=== PATIENT | female | born 1970 | race Caucasian/White ===

== ENCOUNTER 2017-04-06 06:09 | Day surgery (SDC) | payer OTHER ==
--- NOTE | ~2017-04-06 | EGD ---
EGD REPORT [facility] [address] [address] NAME: CHERY DANGELO : 74 STATUS : [place] [facility] [place] PAT#: [id number] AGE: 46 ADM/REG DATE : 04/06/17 MR#: [id number] REPORT SERV DATE: 04/06/17 DICTATED BY: GALINA ROY DATE: 04/06/17 REPORT STATUS : Draft TRANSCRIBED BY: IATARH [facility] DATE: 04/06/17 Endoscopy Center Patient Name: Chery Dangelo Date of : 1970 Attending MD: GALINA ROY MD Procedure Date No Time: 04/06/2017 Procedure: Upper GI endoscopy Indications: Dysphagia Referring MD: CHIARA HOLT MD Medicines: Monitored Anesthesia Care Complications: No immediate complications. Procedure: Pre-Anesthesia Assessment: - ASA Grade Assessment: III - A patient with severe systemic disease. After obtaining informed consent, the endoscope was passed under direct vision. Throughout the procedure, the patient's blood pressure, pulse, and oxygen saturations were monitored continuously. The GIF [id number] was introduced through the mouth, and advanced to the jejunum. The upper GI endoscopy was accomplished without difficulty. The patient tolerated the procedure well. Findings: A mild Schatzki ring (acquired) was found in the lower third of the esophagus. A TTS dilator was passed through the scope. Dilation with a 15-16.5-18 mm balloon (to a maximum balloon size of 18 mm) dilator was performed. Small mucosal tear in proximal esophagus post procedure not related to the balloon dilation but either scope passage or hiccup during procedure. The examined jejunum was normal. Impression: - Mild Schatzki ring. Dilated. - Normal examined jejunum. Recommendation: - Patient has a contact number available for emergencies. The signs and symptoms of potential delayed complications were discussed with the patient. Return to normal activities tomorrow. Written discharge instructions were provided to the patient. - Regular diet. - Continue present medications. - Return to GI clinic PRN. Procedure Code(s): --- Professional --- EGD REPORT [facility] [address] [place] [place]. [address] NAME: CHERY DANGELO : 74 STATUS : [place] [facility] [place] PAT#: [id number] AGE: 46 ADM/REG DATE : 04/06/17 MR#: [id number] REPORT SERV DATE: 04/06/17 DICTATED BY: GALINA ROY DATE: 04/06/17 REPORT STATUS : Draft TRANSCRIBED BY: [employer] DATE: 04/06/17 [id number], Esophagogastroduodenoscopy, flexible, transoral; with transendoscopic balloon dilation of esophagus (less than 30 mm diameter) Diagnosis Code(s): --- Professional --- K22.2, Esophageal obstruction R13.10, Dysphagia, unspecified CPT copyright 2013 [employer]. All rights reserved. The codes documented in this report are preliminary and upon metal spray operator review may be revised to meet current compliance requirements. GALINA ROY MD 04/06/2017 8:08 AM This report has been signed electronically. Number of Addenda: 0 Note Initiated On: 04/06/2017 7:38 AM Scope Withdrawal Time 0 hours 0 minutes 0 seconds [address] [place] [address]
[~2017-04-06 06:09] MED LIST: ACET500CAP PO; B121000P IM; CYMBALTA60 PO; FEOSOLEL PO; LEXAPRO10 PO; NATALVIT1 TAB PO; NEUR300 PO; PERCOCET1 TA2 PO; PERCOCET1 TA4 PO; VITAMIN B-121000 MC1 SL; X5 PO
[2017-04-16] MEDS ORDERED: PRILOSEC40 MG PO (10:07)
[2017-04-16] MEDS ORDERED: REG5 PO (10:07)
[2017-04-30] MEDS ORDERED: CYMBALTA60 PO (13:14)
[2017-04-30] MEDS ORDERED: X5 PO (13:14)
[2017-04-30] MEDS ORDERED: B121000P IM (13:15)
[2017-04-30] MEDS ORDERED: PRILOSEC40 MG PO (13:15)
[2017-05-05] MEDS ORDERED: REG PO (12:44)
[2017-05-05] MEDS ORDERED: BENTYL20 PO (12:44)
[2017-05-05] MEDS ORDERED: MOVANTIK25 MG PO (12:45)
[2017-05-05] MEDS ORDERED: ZOFRAN ODT4 MG PO (12:45)
[2017-05-05] MEDS ORDERED: T PO (12:53)
[2017-05-05] MEDS ORDERED: MIRALAX POWDER1 PKT PO (12:53)
[2017-05-05] MEDS ORDERED: DSS PO (12:54)
[2017-06-12] MEDS ORDERED: DURA25 TOP (10:41)
[2017-07-20] MEDS ORDERED: REM15SOL PO (13:08)
[2017-07-30] MEDS ORDERED: CHEMOTHERAPY IV (17:02)
[2017-07-30] MEDS ORDERED: TPN INFUSION INF (17:07)
== END 2017-04-06 23:59 | disposition home or self-care (01) ==
LOC: DMU 06:09
PROVIDERS: Internal Medicine Gastroenterology
PROC: 0D738ZZ Dilation of Lower Esophagus, Via Natural or Artificial Opening Endoscopic (ICD-10-PCS; principal; 2017-04-06 07:30)
DX: K22.2 Esophageal obstruction (principal); R13.10 Dysphagia, unspecified; I10 Essential (primary) hypertension; D64.9 Anemia, unspecified; F32.9 Major depressive disorder, single episode, unspecified; Z85.43 Personal history of malignant neoplasm of ovary; Z85.038 Personal history of other malignant neoplasm of large intestine; Z98.890 Other specified postprocedural states; Z98.891 History of uterine scar from previous surgery; Z90.710 Acquired absence of both cervix and uterus; Z87.442 Personal history of urinary calculi; Z90.49 Acquired absence of other specified parts of digestive tract; Z87.891 Personal history of nicotine dependence; Z79.899 Other long term (current) drug therapy
CPT/HCPCS: C1725

== ENCOUNTER 2017-07-05 14:04 | Inpatient (IN) | payer OTHER ==
[~2017-07-05] VITALS: Ht 165.1 cm; Wt 83.5 kg
--- NOTE | ~2017-07-05 | IDS ---
Interim Discharge Summary [facility] [address] [place]. [address] NAME: EDEL DANGELO : 74 STATUS : ADM IN PAT#: [id number] AGE: 46 ADM/REG DATE : 07/05/17 MR#: [id number] REPORT SERV DATE: 07/10/17 DICTATED BY: GALINA BARKER II DATE: 07/09/17 REPORT STATUS : Draft TRANSCRIBED BY: MODL DATE: 07/09/17 ADMISSION DATE: 07/05/2017 DISCHARGE DATE: 07/10/2017 DISCHARGE ORIGINALLY PLANNED: 07/09/2017. Discharge delayed secondary to home health care being unavailable to manage IV antibiotics on day of discharge. Interim summary covers dates of service between 07/05/2017 and 07/09/2017. INTERIM DIAGNOSES: 1. Hyperglycemia, chronic. 2. Mild tachycardia. 3. Dysphagia/moderate malnutrition. 4. Jejunal stenosis. 5. Insomnia. 6. Bacteremia. 7. Metastatic colon cancer. CONSULTATIONS: 1. Dr. Doug Zaragoza, [facility]. 2. Dr. Juan Trujillo, Infectious Disease. HOSPITAL COURSE: Please refer to history and physical dated 07/05/[address] Galina Barker for complete details pertaining to patient's initial presentation upon admission and health history. Also refer to consultation dated 07/07/[address] Juan Trujillo, Infectious Disease. Briefly, the patient is a 46-year-old female with a past medical history significant for metastatic colorectal cancer with peritoneal implants, moderate malnutrition with TPN dependency, B12 deficiency, obesity, status post gastric bypass, chronic anemia, and polyneuropathy, who presented to [facility] for direct admission referred by Dr. Doug Zaragoza, [facility], for evaluation and treatment of fever in the setting of positive 2 blood cultures collected with gross growth of Staph epi. The patient was admitted to the hospitalist service, and Infectious Disease was consulted for staph epidermidis sepsis secondary to presumed port infection. Infectious Disease discussed options with the patient which included recommended removal of port given likelihood of relapse in the setting of ongoing chemotherapy and TPN needs. The patient declined to have port removed stating preference to keep port at this time. ID agreed choice was not unreasonable since this is not Staph aureus, and the patient is clinically stable. Repeat blood cultures were obtained during this admission which returned negative. The patient will be discharged home with home health care for management of IV vancomycin through 07/21/2017. Interim Discharge Summary [facility] [address] [place]. [address] NAME: EDEL DANGELO : 74 STATUS : ADM IN PAT#: [id number] AGE: 46 ADM/REG DATE : 07/05/17 MR#: [id number] REPORT SERV DATE: 07/10/17 DICTATED BY: GALINA BARKER II DATE: 07/09/17 REPORT STATUS : Draft TRANSCRIBED BY: NILDA DATE: 07/09/17 1. Chronic hyperglycemia, this is secondary to TPN dependency. The patient reports she does not check her blood glucose at home or use sliding scale insulin as recommended. During this admission, blood glucose has been elevated and has ranged between 140s and 200s. The patient is receiving sliding scale insulin level 3 at 0800 and 2200. Encouraged the patient to resume home blood glucose checks and sliding scale insulin upon discharge. 2. Mild tachycardia. The patient denies chest pain or shortness of breath. Heart rate is controlled today, and not above high 90s. No additional indication for cardiac workup. 3. Dysphagia/moderate malnutrition. Dysphagia in the setting of stenotic efferent limb of bypass. Dr. Rock was notified during this admission and the patient underwent stenting procedure on 07/06/2017. The patient tolerated the procedure well. She is on current trial of clear liquids per GI. The patient is to follow up with GI, Dr. Rock, in one to two weeks. This patient has been TPN dependent since 05/01/2017. Resume home health care for TPN management upon discharge. Diet advancement trial to be managed outpatient per GI. 4. Jejunal stenosis. The patient has history of gastric bypass, status post stenting on 07/06/2017. Follow up with Dr. Rock. The patient is tolerating very small sips of clear liquids. Mild nausea persist. No vomiting. 5. Insomnia. The patient requested med to help sleep. The patient is very hesitant to take any medications. Suggested Vistaril 25 mg tablet p.o. x1 dose tonight with 1 additional 25 mg dose given one hour later to equal 50 mg if needed. The patient agreed to this plan of care. 6. Bacteremia, port likely source. ID has been following throughout this admission. Disposition to home with home health care for IV vancomycin through July 21. 7. Metastatic colon cancer with peritoneal implants. Restart Vectibix per Oncology, currently on hold secondary to bacteremia. Follow up outpatient with Dr. Zaragoza. DISPOSITION INSTRUCTIONS: Discharge home tomorrow with Home Health Care for management of IV antibiotics and TPN. DICTATED BY: REY Lazaro/NILDA Galina Barker II, MD / [id number] CC: MD Brianna Palumbo II, M.D.
--- NOTE | ~2017-07-05 | CN ---
Consultation Report [facility] [address] [place]. [address] NAME: EDEL DANGELO : 74 STATUS : ADM IN [facility]#: [id number] AGE: 46 ADM/REG DATE : 07/05/17 MR#: [id number] REPORT SERV DATE: 07/07/17 DICTATED BY: KATIE TRUJILLO DATE: 07/07/17 REPORT STATUS : Draft TRANSCRIBED BY: MODL DATE: 07/07/17 INFECTIOUS DISEASE CONSULTATION DATE OF CONSULTATION: 07/07/2017 REASON FOR CONSULTATION: Staph epidermidis sepsis secondary to port infection. HISTORY OF PRESENT ILLNESS: This is a 46-year-old female with recurrent metastatic colon cancer, who has a right Port-A-Cath placed back in 2014. Since April, she has been receiving TPN through it because of extrinsic compression at the level of her duodenum from metastatic disease, not allowing her to eat. She presented to the Oncology office on 07/05 with about a week of episodic fevers as high as 103. Blood cultures have been obtained on 07/03 and have returned positive for coagulase-negative staph. The patient was admitted to the hospital. The blood cultures have been identified as oxacillin-resistant Staph epidermidis. The patient initially was given Ancef and that was changed to vancomycin yesterday. She underwent upper endoscopy yesterday with findings again of the jejunal stenosis, and a stent was placed. She has had no fever here in the hospital. She does feel better than on admission. She denies any problems with the function of her port and denies any pain in the area around the port. PAST MEDICAL HISTORY: Metastatic colon cancer, this was initially diagnosed in late 09/2014, and she underwent combination sigmoid colectomy, low anterior resection, and RAMU/BSO at that time, followed by chemotherapy with recurrent disease within her peritoneum and also a liver nodule. She underwent further extensive surgical therapy at [facility] in 07/2016 with resection of a liver metastasis and complete peritonectomy, except for her left upper quadrant, and excision of multiple metastatic tumors, but again showed recurrence in March of this year documented by biopsy then and again in May. Past medical history is otherwise notable for history of obesity with previous gastric bypass surgery, chronic anemia, and polyneuropathy. ALLERGIES: NO KNOWN DRUG ALLERGIES. PRESENT MEDICATIONS: In addition to vancomycin and TPN include Lovenox and insulin sliding scale. SOCIAL HISTORY: Lives with her . Previously taught in middle School. Nondrinker. Past smoking history. FAMILY HISTORY: Unremarkable. REVIEW OF SYSTEMS: Otherwise negative. She is really not able to eat anything by mouth for the past couple of months. Consultation Report [facility] [id number] [place]. [address] NAME: EDEL DANGELO : 74 STATUS : ADM IN [facility]#: [id number] AGE: 46 ADM/REG DATE : 07/05/17 MR#: [id number] REPORT SERV DATE: 07/07/17 DICTATED BY: KATIE TRUJILLO DATE: 07/07/17 REPORT STATUS : Draft TRANSCRIBED BY: NILDA DATE: 07/07/17 PHYSICAL EXAMINATION: VITAL SIGNS: Weight 78 kg. She is afebrile. Blood pressure 127/79, pulse 112, respiratory rate 14. GENERAL: She is alert, in no acute distress. HEAD AND NECK: Show an oral cavity without thrush. Supple neck. LUNGS: Clear to auscultation anteriorly. CARDIAC: Regular rhythm. Normal S1 and S2 without murmur, gallop, or rub. Port in the right upper chest has no surrounding erythema, edema, or tenderness to palpation. ABDOMEN: Soft and nontender. Bowel sounds are reduced. EXTREMITIES: Without rash. Trace edema in lower legs. LABORATORY STUDIES: White blood cell count 6.5, hemoglobin 12.2, platelets 218, 51% neutrophils, 5% bands. Albumin 2.8, prealbumin 7.8, alkaline phosphatase 124, other liver function tests normal. Repeat blood cultures on admission here on 07/05 are positive, both sets for gram-positive cocci in clusters. The blood cultures from 07/03 were drawn one set peripheral, one set from the port and were both positive. IMPRESSION: Methicillin-resistant Staphylococcus epidermidis sepsis secondary to port infection. PLAN: 1. I discussed options with the patient. I would recommend removal of the port given the likelihood of relapse and given her ongoing chemotherapy and TPN needs. However, she would prefer to keep the port for now. This is not unreasonable since this is not Staph aureus and she is clinically stable. 2. Repeat blood cultures in the morning. If these return positive, I would more strongly recommend removal of the port. 3. I will plan two weeks of vancomycin through 07/20. BRITTANY/MODL Katie Trujillo M.D. / [id number] CC: MD Brianna Palumbo II, M.D. Derek W Holland, M.D.
--- NOTE | ~2017-07-05 | HP ---
History And Physical [address] [address] NAME: EDEL DANGELO : 74 STATUS : ADM IN LOCATED WITHIN [facility]#: [id number] AGE: 46 ADM/REG DATE : 07/05/17 MR#: [id number] REPORT SERV DATE: 07/05/17 DICTATED BY: GALINA BARKER II VITALIYSUNDEEP DATE: 07/05/17 REPORT STATUS : Draft TRANSCRIBED BY: MODL DATE: 07/05/17 DATE OF ADMISSION: 07/05/2017 PRIMARY ONCOLOGIST: Doug Zaragoza M.D. SURGEON: Dr. Ramos. CHIEF COMPLAINT: Fevers. HISTORY OF PRESENT ILLNESS: The patient is a 46-year-old female with an unfortunate history of metastatic colorectal carcinoma with numerous peritoneal implants who presented to Dr. Zaragoza's office after noting intermittent fevers up to 103 over the last week to week and a half. Blood cultures were drawn in Dr. Zaragoza's office yesterday and are growing Staph epi in 2/2 bottles, one being drawn from the port. Dr. Zaragoza requested the patient be admitted for IV antibiotics and further evaluation. The patient states she is still having fevers, but denies any cough, chest pain, shortness of breath, nausea, vomiting, diarrhea, abdominal pain, or dysuria. She is actually TPN dependent at the moment as she has a narrowing and what sounds like maybe her duodenum and Dr. Rock is planning on attempting a stent may be even tomorrow per patient. She is strict n.p.o. and is unable to take any pills. The patient denies any abdominal pain or any other symptoms. REVIEW OF SYSTEMS: 10-point review of systems otherwise negative except for HPI. PAST MEDICAL HISTORY: 1. Metastatic colorectal cancer, peritoneal implants followed by Dr. Zaragoza. 2. Moderate malnutrition on TPN. 3. B12 deficiency. 4. Obesity, status post gastric bypass. 5. Chronic anemia. 6. Polyneuropathy. SURGICAL HISTORY: 1. Total abdominal hysterectomy with bilateral salpingo-oophorectomy. 2. Sigmoid colectomy with low anterior resection. 3. Esophageal dilation. 4. Lysis of adhesions with laparotomy and biopsy of peritoneal implant recently. SOCIAL HISTORY: , lives independently, previous school attendance secretary. Denies any alcohol or drug use, but does have a history of smoking about half pack a day for 10 years. FAMILY HISTORY: Significant for parents and grandparents diseased. ALLERGIES: NO KNOWN DRUG ALLERGIES. MEDICATIONS: None. Strict n.p.o. History And Physical [address] [address] NAME: EDEL DANGELO : 74 STATUS : ADM IN LOCATED WITHIN [facility]#: [id number] AGE: 46 ADM/REG DATE : 07/05/17 MR#: [id number] REPORT SERV DATE: 07/05/17 DICTATED BY: GALINA BARKER II DATE: 07/05/17 REPORT STATUS : Draft TRANSCRIBED BY: NILDA DATE: 07/05/17 PHYSICAL EXAMINATION: VITAL SIGNS: Blood pressure 122/69, temperature 98.3, pulse 112, and respirations 16. GENERAL: The patient is alert and oriented x3, in no acute distress. Neck: Supple. Nontender. No lymphadenopathy or thyromegaly. HEENT: Moist mucous membranes. Pupils are equal, round, and reactive to light. Conjunctivae clear. RESPIRATORY: Lungs are clear to auscultation bilaterally. No wheezes, rhonchi, or rales. ABDOMEN: Soft, nontender, nondistended. Normoactive bowel sounds. EXTREMITIES: No cyanosis, clubbing, or edema. SKIN: No lesions, rashes, or wounds. NEUROLOGIC: No focal deficits LABORATORY DATA: Laboratory data from 07/04/2017 shows a CEA of 28.6, phos 4.3, glucose 145, BUN 35, creatinine 0.4, sodium 136, potassium 4.2, chloride 102, CO2 of 23, ALT 36, AST 21, alkaline phosphatase 123, total protein 5.7, albumin 3.1, calcium 8.5, total bilirubin 0.5, and magnesium 2. WBC 8.5, hemoglobin 13.4, hematocrit 41, and platelets 177. ASSESSMENT AND PLAN: The patient is a 46-year-old female with: 1. Staph epi bacteremia presumably due to port infection. We will re-culture from port and peripheral and start the patient on Ancef. We will go and consult Infectious Disease as well. 2. Recurrent fevers, though no evidence of sepsis. 3. Metastatic colon cancer per Dr. Zaragoza. 4. Moderate protein calorie malnutrition, on TPN. We will consult pharmacy. 5. Chronic anemia. We will monitor counts. 6. Dysphagia and stenotic efferent limb of bypass. We will notify Dr. Rock, and see if he would like to perform any stenting procedures during the patient's hospitalization. 7. Hypertension. Monitor and treat accordingly. 8. Full code. 9. DVT prophylaxis. Fatoumata. BILLY/MODL Galina Barker II, MD / [id number] CC: MD Brianna Palumbo II, M.D.
--- NOTE | ~2017-07-05 | DS ---
Discharge Summary [address] [place]. [address] NAME: EDEL DANGELO : 74 STATUS : DIS IN PAT#: [id number] AGE: 46 ADM/REG DATE : 07/05/17 MR#: [id number] REPORT SERV DATE: 07/11/17 DICTATED BY: RAFI FOSTER DATE: 07/10/17 REPORT STATUS : Draft TRANSCRIBED BY: MODL DATE: 07/10/17 ADMISSION DATE: 07/05/2017 DISCHARGE DATE: 07/10/2017 DISCHARGE DIAGNOSES: 1. Hyperglycemia, chronic. 2. Mild tachycardia. 3. Dysphagia/moderate malnutrition. 4. Jejunum stenosis. 5. Insomnia. 6. Bacteremia. 7. Metastatic colon cancer. CONSULTATIONS: 1. Oncology, Dr. Zaragoza. 2. Infectious Disease, Dr. Trujillo. COURSE OF HOSPITAL STAY: Please refer to history and physical dictated by Dr. José Meredith on 07/05/2017 for complete admission details as well as consultation note by Dr. Zaragoza and Dr. Trujillo. This patient is a 46-year-old female, who presents with a history of metastatic colorectal cancer. She is under the care of Dr. Zaragoza in [facility]. The patient was admitted for evaluation and treatment of fever in the setting of two positive blood cultures with Staph epi. This patient was admitted under the Hospitalist Service. Infectious Disease and Oncology were consulted to follow the patient. Infectious Disease was consulted regarding Staph epi sepsis secondary to presumed Port-A-Cath infection. Repeat blood cultures were obtained upon admission, which did return negative. The patient was placed on vancomycin, this was changed prior to discharge. The patient was changed to daptomycin IV. This will be completed on 07/21/2017. The patient will have weekly lab work. It was discussed with the patient regarding possible PICC line placement for the patient's TPN. The patient did decline. This was reviewed with Dr. Foster. It was in agreement for Home Healthcare and infusion company to follow the patient. 1. Chronic hyperglycemia secondary to TPN. The patient has been monitored throughout her stay and felt her hypoglycemia is due to TPN. She will continue to monitor at home. 2. Mild tachycardia. The patient's heart rate at this time is 98. This has been monitored. She has remained in the 90s during her stay. 3. Dysphagia/moderate malnutrition. The patient has been on chronic TPN. This was continued during her hospital stay. She will continue this upon discharge. The patient will follow up with Dr. Zaragoza regarding possible tapering of TPN. 4. Jejunum stenosis. The patient has had history of status post stenting on 07/06/[address] Rock. She will finish following up with Dr. Rock outpatient. The patient has had sips of clear liquids during her stay, but has had consistent nausea and vomiting. Antiemetics have been continued. Discharge Summary [address] [address] NAME: EDEL DANGELO : 74 STATUS : DIS IN PAT#: [id number] AGE: 46 ADM/REG DATE : 07/05/17 MR#: [id number] REPORT SERV DATE: 07/11/17 DICTATED BY: RAFI FOSTER DATE: 07/10/17 REPORT STATUS : Draft TRANSCRIBED BY: MODL DATE: 07/10/17 5. Insomnia. The patient does state that she has had difficulty sleeping. Vistaril 25 mg was initiated during her hospital stay, which did seem to help alleviate the patient's insomnia. 6. Bacteremia on possible Port-A-Cath site. Infectious Disease was consulted as noted above, initially started on vancomycin, this was changed prior to discharge. The patient will follow up with Dr. Trujillo outpatient. Weekly lab work will continue outpatient. 7. Metastatic colon cancer, followed by Dr. Zaragoza. The patient will follow up with Dr. Zaragoza outpatient on 07/12/2017. DISCHARGE MEDICATIONS: 1. Daptomycin 500 mg one IV every 24 hours. 2. TPN cyclic every 12 hours. This discharge took greater than 30 minutes. The patient is being discharged home in hemodynamically stable condition. [facility]/MODL Patricia Marin, GENERAL DISTILLERY WORKER Rafi Foster M.D. / [id number] CC: Juliann Alaslie Ambrose, M.D.
--- NOTE | ~2017-07-05 | EGD ---
EGD REPORT [facility] [address] [address] NAME: CHERY DANGELO : [birth year] STATUS : ADM IN PAT#: [id number] AGE: 46 ADM/REG DATE : 07/05/17 MR#: [id number] REPORT SERV DATE: 07/06/17 DICTATED BY: CIRILO ZAMORANO DATE: 07/06/17 REPORT STATUS : Draft TRANSCRIBED BY: [facility] DATE: 07/06/17 Endoscopy Center Patient Name: Chery Dangelo Date of : 1970 Attending MD: CIRILO ZAMORANO, Procedure Date No Time: 07/06/2017 Procedure: Upper GI endoscopy Indications: For therapy of gastric stenosis Referring MD: OTTONIEL LINTON, CHIARA CORDERO MD, GALINA ROY MD Medicines: General Anesthesia Complications: No immediate complications. Estimated blood loss: None. Procedure: Pre-Anesthesia Assessment: - ASA Grade Assessment: IV - A patient with severe systemic disease that is a constant threat to life. After obtaining informed consent, the endoscope was passed under direct vision. Throughout the procedure, the patient's blood pressure, pulse, and oxygen saturations were monitored continuously. The GIF IT [id number] was introduced through the mouth, and advanced to the efferent jejunal loop. The upper GI endoscopy was accomplished without difficulty. The patient tolerated the procedure well. Findings: The esophagus was normal. Evidence of a gastric bypass was found. A gastric pouch with a normal size was found. The gastrojejunal anastomosis was characterized by severe extrinsic stenosis. This was traversed after dilation. Initially the blind limb was encountered and was not traversible. It was not initiallyh clear which this limb this was therefore it was dilated to 15 in order to traverse this. Subsequently the efferent limb was indentified which was traversible. A severe extrinsic stenosis that was traversed was found in the jejunum. This was stented with a 22 mm x 12 cm WallFlex stent under fluoroscopic guidance. The proximal end was in the distal esophagus. Impression: - Normal esophagus. - Gastric bypass with a normal-sized pouch. - Jejunal stenosis. Prosthesis placed. Recommendation: - Clear liquid diet. - Keep head of bed elevated to 45 degrees at all times. Procedure Code(s): --- Professional --- EGD REPORT [address] [address] NAME: CHERY DANGELO : [birth year] STATUS : ADM IN [facility]#: [id number] AGE: 46 ADM/REG DATE : 07/05/17 MR#: [id number] REPORT SERV DATE: 07/06/17 DICTATED BY: CIRILO ZAMORANO DATE: 07/06/17 REPORT STATUS : Draft TRANSCRIBED BY: [employer] DATE: 07/06/17 41409, Esophagogastroduodenoscopy, flexible, transoral; with placement of endoscopic stent (includes pre- and post-dilation and guide wire passage, when performed) Diagnosis Code(s): --- Professional --- Z98.84, Bariatric surgery status K56.69, Other intestinal obstruction K31.89, Other diseases of stomach and duodenum CPT copyright 2013 [employer]. All rights reserved. The codes documented in this report are preliminary and upon shipping packer review may be revised to meet current compliance requirements. CIRILO ZAMORANO, 07/06/2017 4:47 PM Number of Addenda: 0 Note Initiated On: 07/06/2017 3:51 PM Scope Withdrawal Time 0 hours 0 minutes 0 seconds [address] [id number]
[~2017-07-05 14:04] MED LIST changes: +BENTYL20 PO; +DSS PO; +DURA25 TOP; +MIRALAX POWDER1 PKT PO; +MOVANTIK25 MG PO; +PRILOSEC40 MG PO; +REG PO; +REG5 PO; +T PO; +ZOFRAN ODT4 MG PO
[2017-07-05 20:08] LABS: A/G RATIO 0.7 (0.7-1.9); ALBUMIN 2.6 G/DL (3.5-5.0); CALCIUM, SERUM 8.7 MG/DL (8.5-10.4); CHLORIDE, SERUM 106 MMOL/L (96-112); CO2 (CARBON DIOXIDE) 27 MMOL/L (24-34); CREATININE 0.45 MG/DL (0.55-1.02); GFR AFRICAN AMERICAN 141 ML/MIN (>=60); GFR NON AFRICAN AMERICAN 122 ML/MIN (>=60); GLOBULIN 3.9 G/DL (2.5-4.1); GLUCOSE, SERUM 122 MG/DL (60-99); POTASSIUM, SERUM 3.8 MMOL/L (3.5-5.3); SGOT(AST) 18 U/L (5-40); SGPT(ALT) 15 U/L (5-65); SODIUM, SERUM 139 MMOL/L (135-148); TOTAL PROTEIN 6.5 G/DL (6.0-8.5)
[2017-07-05 20:09] LABS: ALKALINE PHOSPHATASE 124 U/L (45-117); BUN (BLOOD UREA NITROGEN) 29 MG/DL (6-23); TOTAL BILIRUBIN 0.5 MG/DL (0-1.2)
[2017-07-05 20:49] LABS: PROCALCITONIN 0.32 ng/mL (<0.5)
[2017-07-06 05:14] LABS: HEMATOCRIT 37.4 % (36.0-48.0); HEMOGLOBIN 12.2 g/dL (12.0-16.0); MEAN CORPUS HGB CONC 32.6 g/dL (32.0-36.0); MEAN CORPUSCULAR HEMOGLOB 30.7 pg (26.0-34.0); MEAN PLATELET VOLUME 12.6 fL (9.2-13.0); RBC DISTRIBUTION WIDTH 13.9 % (12.0-16.0); RED CELL COUNT 3.98 10/6/uL (4.0-5.6); WHITE BLOOD CELLS 6.5 10/3/uL (4.5-10.5)
[2017-07-06 05:18] LABS: MANUAL DIFF YES %; PLATELET COUNT 218 10/3/uL (150-400)
[2017-07-06 05:33] LABS: A/G RATIO 0.7 (0.7-1.9); ALBUMIN 2.8 G/DL (3.5-5.0); ALKALINE PHOSPHATASE 131 U/L (45-117); CHLORIDE, SERUM 103 MMOL/L (96-112); CO2 (CARBON DIOXIDE) 28 MMOL/L (24-34); GFR AFRICAN AMERICAN 128 ML/MIN (>=60); GFR NON AFRICAN AMERICAN 111 ML/MIN (>=60); GLUCOSE, SERUM 133 MG/DL (60-99); PHOSPHORUS, SERUM 4.7 MG/DL (2.5-4.5); POTASSIUM, SERUM 3.3 MMOL/L (3.5-5.3); PREALBUMIN 7.6 MG/DL (17.0-43.0); SGOT(AST) 20 U/L (5-40); SGPT(ALT) 17 U/L (5-65); SODIUM, SERUM 139 MMOL/L (135-148); TOTAL BILIRUBIN 0.6 MG/DL (0-1.2); TOTAL PROTEIN 6.8 G/DL (6.0-8.5)
[2017-07-06 05:35] LABS: BUN (BLOOD UREA NITROGEN) 23 MG/DL (6-23); TRIGLYCERIDE 74 MG/DL (< 150)
[2017-07-06 05:50] LABS: BAND NEUTROPHILS 5 %; EOSINOPHILS 2 %; EOSINOPHILS ABSOLUTE (CALC) 0.13 10/3/uL (0.0-0.53); LYMPHOCYTES 29 %; LYMPHOCYTES ABSOLUTE (CALC) 1.89 10/3/uL (0.67-4.30); MONOCYTES 13 %; MONOCYTES ABSOLUTE (CALC) 0.85 10/3/uL (0.21-1.20); NEUTROPHILS ABSOLUTE (CALC) 3.64 10/3/uL (2.02-8.40); PLATELET ESTIMATE ADQ (ADEQUATE); RBC MORPHOLOGY NORM (NORMAL); SEGMENTED NEUTROPHIL (0) 51 %; TOTAL NUCLEATED CELLS 100
[2017-07-06 08:09] LABS: ASCORBIC ACID (UR NOT ORDER) NEG (NEG); BILIRUBIN, URINE NEGATIVE (NEG); KETONE, URINE NEGATIVE (NEG); LEUKOCYTE ESTERASE(NOT OR NEG (NEG); WBC (NOT ORDERED) (RFLEX) 6 (0-5)
[2017-07-07 05:45] LABS: BUN (BLOOD UREA NITROGEN) 25 MG/DL (6-23); CALCIUM, SERUM 8.2 MG/DL (8.5-10.4); CHLORIDE, SERUM 106 MMOL/L (96-112); CO2 (CARBON DIOXIDE) 26 MMOL/L (24-34); CREATININE 0.43 MG/DL (0.55-1.02); GFR AFRICAN AMERICAN 143 ML/MIN (>=60); GFR NON AFRICAN AMERICAN 124 ML/MIN (>=60); SODIUM, SERUM 141 MMOL/L (135-148)
[2017-07-07 05:50] LABS: GLUCOSE, SERUM 248 MG/DL (60-99); PHOSPHORUS, SERUM 1.6 MG/DL (2.5-4.5); POTASSIUM, SERUM 4.2 MMOL/L (3.5-5.3)
[2017-07-08 05:20] LABS: BASOPHILS 0 %; EOSINOPHILS 0 %; HEMATOCRIT 35.2 % (36.0-48.0); HEMOGLOBIN 11.6 g/dL (12.0-16.0); IMMATURE GRANULOCYTES 1.1 %; IMMATURE GRANULOCYTES ABSOLUTE 0.09 10/3/uL (0.0-0.11); LYMPHOCYTES 8.7 %; MEAN CORPUSCULAR HEMOGLOB 30.7 pg (26.0-34.0); MEAN CORPUSCULAR VOLUME 93.1 fL (80-100); MEAN PLATELET VOLUME 12.4 fL (9.2-13.0); MONOCYTES 7.8 %; MONOCYTES ABSOLUTE 0.63 10/3/uL (0.21-1.20); NEUTROPHILS 82.4 %; NEUTROPHILS ABSOLUTE 6.65 10/3/uL (2.02-8.40); PLATELET COUNT 240 10/3/uL (150-400); RBC DISTRIBUTION WIDTH 13.7 % (12.0-16.0); RED CELL COUNT 3.78 10/6/uL (4.0-5.6); WHITE BLOOD CELLS 8.1 10/3/uL (4.5-10.5)
[2017-07-08 05:35] LABS: CHLORIDE, SERUM 106 MMOL/L (96-112); CO2 (CARBON DIOXIDE) 26 MMOL/L (24-34); CREATININE 0.39 MG/DL (0.55-1.02); GFR AFRICAN AMERICAN 148 ML/MIN (>=60); GFR NON AFRICAN AMERICAN 128 ML/MIN (>=60); GLUCOSE, SERUM 237 MG/DL (60-99); POTASSIUM, SERUM 3.9 MMOL/L (3.5-5.3); SODIUM, SERUM 141 MMOL/L (135-148)
[2017-07-08 05:37] LABS: BUN (BLOOD UREA NITROGEN) 29 MG/DL (6-23)
[2017-07-08 05:40] LABS: MANUAL DIFF NO %
[2017-07-09 05:59] LABS: BASOPHILS 0.1 %; BASOPHILS ABSOLUTE 0.01 10/3/uL (0.0-0.16); EOSINOPHILS 0.1 %; EOSINOPHILS ABSOLUTE 0.01 10/3/uL (0.0-0.53); HEMOGLOBIN 11.2 g/dL (12.0-16.0); IMMATURE GRANULOCYTES 1.7 %; IMMATURE GRANULOCYTES ABSOLUTE 0.13 10/3/uL (0.0-0.11); LYMPHOCYTES 12.6 %; LYMPHOCYTES ABSOLUTE 0.94 10/3/uL (0.67-4.30); MEAN CORPUS HGB CONC 32.9 g/dL (32.0-36.0); MEAN CORPUSCULAR HEMOGLOB 31.1 pg (26.0-34.0); MEAN CORPUSCULAR VOLUME 94.4 fL (80-100); MEAN PLATELET VOLUME 12.6 fL (9.2-13.0); MONOCYTES 8.9 %; MONOCYTES ABSOLUTE 0.66 10/3/uL (0.21-1.20); NEUTROPHILS 76.6 %; PLATELET COUNT 235 10/3/uL (150-400); RBC DISTRIBUTION WIDTH 13.6 % (12.0-16.0); WHITE BLOOD CELLS 7.5 10/3/uL (4.5-10.5)
[2017-07-09 06:04] LABS: MANUAL DIFF NO %
[2017-07-09 06:16] LABS: BUN (BLOOD UREA NITROGEN) 31 MG/DL (6-23); CHLORIDE, SERUM 106 MMOL/L (96-112); CO2 (CARBON DIOXIDE) 25 MMOL/L (24-34); CREATININE 0.35 MG/DL (0.55-1.02); GFR AFRICAN AMERICAN 153 ML/MIN (>=60); GFR NON AFRICAN AMERICAN 132 ML/MIN (>=60); GLUCOSE, SERUM 216 MG/DL (60-99); PHOSPHORUS, SERUM 2.4 MG/DL (2.5-4.5); SODIUM, SERUM 139 MMOL/L (135-148); VANCOMYCIN TROUGH 6.7 MCG/ML (10.0-20.0)
[2017-07-10 05:25] LABS: BUN (BLOOD UREA NITROGEN) 30 MG/DL (6-23); CALCIUM, SERUM 8.1 MG/DL (8.5-10.4); CHLORIDE, SERUM 103 MMOL/L (96-112); CO2 (CARBON DIOXIDE) 26 MMOL/L (24-34); CREATININE 0.33 MG/DL (0.55-1.02); GFR AFRICAN AMERICAN 156 ML/MIN (>=60); GFR NON AFRICAN AMERICAN 135 ML/MIN (>=60); GLUCOSE, SERUM 159 MG/DL (60-99); PHOSPHORUS, SERUM 3.3 MG/DL (2.5-4.5); POTASSIUM, SERUM 3.9 MMOL/L (3.5-5.3); SODIUM, SERUM 138 MMOL/L (135-148)
[2017-07-10] MEDS ORDERED: CUBICIN500 MG IV (14:28)
== END 2017-07-10 17:04 | disposition home health service (06) | DRG 314 ==
LOC: ENRESERV → ENRESERVDT → ENRESERVTM → 4EA 15:50
PROVIDERS: Internal Medicine; Internal Medicine Gastroenterology; Nurse Practitioner Family
PROC: 0D7A8DZ Dilation of Jejunum with Intraluminal Device, Via Natural or Artificial Opening Endoscopic (ICD-10-PCS; principal; 2017-07-06 16:15)
DX: T82.7XXA Infection and inflammatory reaction due to other cardiac and vascular devices, implants and grafts, initial encounter (principal); A41.2 Sepsis due to unspecified staphylococcus; K56.69 Other intestinal obstruction; C78.7 Secondary malignant neoplasm of liver and intrahepatic bile duct; E44.0 Moderate protein-calorie malnutrition; R13.10 Dysphagia, unspecified; G62.9 Polyneuropathy, unspecified; C18.9 Malignant neoplasm of colon, unspecified; Y83.8 Other surgical procedures as the cause of abnormal reaction of the patient, or of later complication, without mention of misadventure at the time of the procedure; K31.89 Other diseases of stomach and duodenum; I10 Essential (primary) hypertension; D64.9 Anemia, unspecified; Z98.84 Bariatric surgery status; Z87.891 Personal history of nicotine dependence; R73.9 Hyperglycemia, unspecified
CPT/HCPCS: 76000; 80048; 80053; 80202; 81001; 82330; 82962; 83605; 83735; 84100; 84134; 84145; 84478; 85025; 87040; 87077; 87150; 87186; A9270-GY; C1725; C1876; J0690; J0878; J2405; J2550; J3010; J3370

== ENCOUNTER 2017-07-23 07:49 | Day surgery (SDC) | payer OTHER ==
[~2017-07-23] VITALS: Ht 165.1 cm; Wt 77.1 kg
--- NOTE | ~2017-07-23 | EGD ---
EGD REPORT [facility] [address] [address] NAME: CHERY DANGELO : 74 STATUS : [facility]#: [id number] AGE: 46 ADM/REG DATE : 07/23/17 MR#: [id number] REPORT SERV DATE: 07/27/17 DICTATED BY: CIRILO ZAMORANO DATE: 07/27/17 REPORT STATUS : Draft TRANSCRIBED BY: [facility] DATE: 07/27/17 Endoscopy Center Patient Name: Chery Dangelo Date of : 1970 Attending MD: CIRILO ZAMORANO, Procedure Date No Time: 07/23/2017 Procedure: Upper GI endoscopy Indications: Dysphagia Referring MD: CHIARA CORDERO MD, OTTONIEL LINTON Medicines: Monitored Anesthesia Care Complications: No immediate complications. Estimated blood loss: None. Procedure: After obtaining informed consent, the endoscope was passed under direct vision. Throughout the procedure, the patient's blood pressure, pulse, and oxygen saturations were monitored continuously. The GIF [id number] was introduced through the mouth, and advanced to the efferent jejunal loop. The upper GI endoscopy was accomplished without difficulty. The patient tolerated the procedure well. The upper GI endoscopy was accomplished without difficulty. The patient tolerated the procedure well. Findings: An esophageal stent was found in the lower third of the esophagus. A metal stent was found in the entire examined stomach. A metal stent was seen in the jejunum. Diffuse nodular mucosa was found in the entire examined stomach. This was protruding through openings in the stent but the lumen was open and traversible. Impression: - Pre-existing esophageal stent. - Pre-existing gastric stent. - Jejunal stents. - Nodular mucosa in the entire stomach. Recommendation: - Return to previous diet. - Continue present medications. - Return to referring physician. Procedure Code(s): --- Professional --- 37593, Esophagogastroduodenoscopy, flexible, transoral; diagnostic, including collection of specimen(s) by brushing or washing, when performed (separate procedure) Diagnosis Code(s): --- Professional --- EGD REPORT [facility] [address] [address] NAME: CHERY DANGELO : [birth year] STATUS : [facility] PAT#: [id number] AGE: 46 ADM/REG DATE : 07/23/17 MR#: [id number] REPORT SERV DATE: 07/27/17 DICTATED BY: CIRILO ZAMORANO DATE: 07/27/17 REPORT STATUS : Draft TRANSCRIBED BY: [employer] DATE: 07/27/17 Z98.89, Other specified postprocedural states K31.9, Disease of stomach and duodenum, unspecified R13.10, Dysphagia, unspecified CPT copyright 2013 [employer]. All rights reserved. The codes documented in this report are preliminary and upon oil and gas drafter review may be revised to meet current compliance requirements. CIRILO ZAMORANO, 07/23/2017 8:53 AM Number of Addenda: 0 Note Initiated On: 07/23/2017 8:43 AM Scope Withdrawal Time 0 hours 0 minutes 0 seconds [address] [facility] [place] [address]
[~2017-07-23 07:49] MED LIST changes: +CUBICIN500 MG IV; +REM15 PO
== END 2017-07-23 23:59 | disposition home or self-care (01) ==
LOC: DMU 07:49
PROVIDERS: Internal Medicine Gastroenterology
PROC: 0DJ08ZZ Inspection of Upper Intestinal Tract, Via Natural or Artificial Opening Endoscopic (ICD-10-PCS; principal; 2017-07-23 09:00)
DX: K31.89 Other diseases of stomach and duodenum (principal); I10 Essential (primary) hypertension; J30.1 Allergic rhinitis due to pollen; F41.9 Anxiety disorder, unspecified; F32.9 Major depressive disorder, single episode, unspecified; D64.9 Anemia, unspecified; Z90.710 Acquired absence of both cervix and uterus; Z98.84 Bariatric surgery status; Z90.79 Acquired absence of other genital organ(s); Z90.722 Acquired absence of ovaries, bilateral; Z96.89 Presence of other specified functional implants; Z87.891 Personal history of nicotine dependence; Z85.038 Personal history of other malignant neoplasm of large intestine; Z79.899 Other long term (current) drug therapy; Z98.890 Other specified postprocedural states